=== PATIENT | female | born 1955 | race Hispanic/Latino ===

== ENCOUNTER 2021-03-07 15:54 | Outpatient (CLI) | payer MEDICARE ==
[2021-03-08 19:32] LABS: SARS-CoV-2 PCR by NAA Not Detected (NotDetected)
== END 2021-03-07 15:55 | disposition home or self-care (01) ==
LOC: LABBT 15:54
PROVIDERS: ATTEND Orthopaedic Surgery
DX: Z01.812 Encounter for preprocedural laboratory examination (principal); Z20.822 Contact with and (suspected) exposure to COVID-19
CPT/HCPCS: U0003; U0005

== ENCOUNTER 2021-03-11 11:58 | Day surgery (SDC) | payer OTHER, MEDICARE ==
[2021-03-08 09:25] VITALS: BMI 31.2
[2021-03-11] MEDS ORDERED: Midazolam HCl 2 mg/2 ml Vial ONE (13:06)
[2021-03-11] MEDS ORDERED: Fentanyl 100 MCG/2 ML VIAL ONE ×4 (13:06→15:33)
[2021-03-11] MEDS ORDERED: ceFAZolin 2 GM/Dextrose 50 ML IVPB ONE (13:08)
[2021-03-11] MEDS ORDERED: Ondansetron PF 4 MG/2 ML Vial ONE (13:35)
[2021-03-11] MEDS ORDERED: Lidocaine 1% PF 5 ML VIAL ONE (13:35)
[2021-03-11] MEDS ORDERED: Dexamethasone 20 MG/5 ML VIAL ONE (13:35)
[2021-03-11] MEDS ORDERED: Naloxone HCl 0.4 mg/ml Vial ONE (13:35)
[2021-03-11] MEDS ORDERED: Bupivacaine HCl 0.5%/Epinephrine 1:200,000/PF 30 ml Vial ONE (13:35)
[2021-03-11] MEDS ORDERED: PROPOFOL 200 MG/20 ML VIAL ONE (13:35)
[2021-03-11] MEDS ORDERED: Esmolol 100 MG/10 ML VIAL ONE (13:35)
[2021-03-11] MEDS ORDERED: Glycopyrrolate 0.2 MG/ML 5 ML SYRINGE ONE (13:35)
[2021-03-11] MEDS ORDERED: PHENYLEPHRINE-NS 100 MCG/ML 10 ML SYRINGE ONE (13:35)
[2021-03-11] MEDS ORDERED: Ropivacaine 2% HCl/PF (20 MG/10 ML VIAL) ONE (13:35)
[2021-03-11] MEDS ORDERED: Ondansetron PF 4 MG/2 ML Vial IVP PRN (14:00)
[2021-03-11] MEDS ORDERED: Zolpidem Tartrate 5 MG TAB PO PRN (14:00)
[2021-03-11] MEDS ORDERED: Ketorolac Tromethamine 30 MG/ML VIAL IVP PRN (14:00)
[2021-03-11] MEDS ORDERED: Promethazine HCl 25 MG/ML VIAL IM PRN (14:00)
[2021-03-11] MEDS ORDERED: Ropivacaine 0.2% 550 ML 550 ML NERVE BLCK SCH (14:00)
[2021-03-11] MEDS ORDERED: Labetalol HCl 100 MG/20 ML VIAL ONE (15:40)
[2021-03-11] MEDS ORDERED: Labetalol HCl 100 MG/20 ML VIAL SLOW IVP SCH (15:45)
[2021-03-11] MEDS ORDERED: Lisinopril/Hydrochlorothiazide 20 mg/12.5 mg Tablet PO SCH (16:00)
== END 2021-03-11 17:30 | disposition home or self-care (01) ==
LOC: SDC 11:58
PROVIDERS: ATTEND Orthopaedic Surgery
PROC: 0QSK04Z Reposition Left Fibula with Internal Fixation Device, Open Approach (ICD-10-PCS; principal; 2021-03-11)
PROC: 0QSH04Z Reposition Left Tibia with Internal Fixation Device, Open Approach (ICD-10-PCS; 2021-03-11)
PROC: 3E0T3BZ Introduction of Anesthetic Agent into Peripheral Nerves and Plexi, Percutaneous Approach (ICD-10-PCS; 2021-03-11)
PROC: 3E0T3BZ Introduction of Anesthetic Agent into Peripheral Nerves and Plexi, Percutaneous Approach (ICD-10-PCS; 2021-03-11)
DX: S82.852A Displaced trimalleolar fracture of left lower leg, initial encounter for closed fracture (principal); S93.491A Sprain of other ligament of right ankle, initial encounter; I10 Essential (primary) hypertension; E78.5 Hyperlipidemia, unspecified; Z79.899 Other long term (current) drug therapy; W01.0XXA Fall on same level from slipping, tripping and stumbling without subsequent striking against object, initial encounter; Y93.K1 Activity, walking an animal
CPT/HCPCS: 27822; 64446; 64447; 73610; 76000; A4306; C1713; J0690; J1100; J2250; J2310; J2405; J2704; J2795; J3010